=== PATIENT | female | born 1990 | race Two or more races ===

== ENCOUNTER 2020-07-03 17:29 | Outpatient (CLI) | payer BC ==
[~2020-07-03] VITALS: Ht 165.1 cm; Wt 120.0 kg
[2020-07-03 17:55] VITALS: BP 134/69
[2020-07-03] MEDS ORDERED: INSULIN NPH HUMAN 100 UNIT/ML, 3ML VIAL SQ-INSULIN SCH (20:30)
== END 2020-07-03 20:39 | disposition home or self-care (01) ==
LOC: LDOP 17:29
PROVIDERS: ATTEND Obstetrics & Gynecology
DX: O24.414 Gestational diabetes mellitus in pregnancy, insulin controlled (principal); O13.4 Gestational [pregnancy-induced] hypertension without significant proteinuria, complicating childbirth; Z3A.35 35 weeks gestation of pregnancy
CPT/HCPCS: 59025; 84112; 96372; J1815

== ENCOUNTER 2020-07-18 14:28 | Inpatient (IN) | payer BC ==
[~2020-07-18] VITALS: Ht 165.1 cm; Wt 120.0 kg
[2020-07-18 14:44] VITALS: BP 152/73
[2020-07-18] MEDS ORDERED: NEWBORN KIT ONE (14:45)
[2020-07-18] MEDS ORDERED: LIDOCAINE 1%, 20ML ONE (14:45)
[2020-07-18] MEDS ORDERED: OXYTOCIN 30U/ 0.9% NaCL 500ML 500 ML ONE ×2 (14:45→23:14)
[2020-07-18] MEDS ORDERED: MISOPROSTOL 200 MCG TABLET ONE (14:45)
[2020-07-18] MEDS ORDERED: NPH,100V5 SQ ×2 (14:58)
[2020-07-18] MEDS ORDERED: PREN1TAB60 PO (14:58)
[2020-07-18] MEDS ORDERED: CALCIUM CARBONATE 500 MG TAB.CHEW PO PRN (15:00)
[2020-07-18] MEDS ORDERED: ONDANSETRON 2MG/ML, 2ML IVPush PRN ×2 (15:00→21:30)
[2020-07-18] MEDS ORDERED: D5%-LACTATED RINGERS 1,000 ML IV SCH (15:00)
[2020-07-18] MEDS ORDERED: OXYTOCIN 30U/ 0.9% NaCL 500ML 500 ML IV ONE (15:00)
[2020-07-18] MEDS: LACTATED RINGERS 1,000 ML IV SCH ×2 (15:00→19:58)
[2020-07-18] MEDS ORDERED: TERBUTALINE 1 MG/ML, 1ML SQ PRN (15:00)
[2020-07-18] MEDS ORDERED: FENTANYL PF 100 MCG/2ML IVPush PRN (15:00)
[2020-07-18] MEDS ORDERED: MISOPROSTOL 25 MCG TABLET VG PRN (15:00)
[2020-07-18] MEDS ORDERED: FENTANYL PF 100 MCG/2ML IV PRN (15:00)
[2020-07-18] MEDS ORDERED: TERBUTALINE 1 MG/ML, 1ML IVPush PRN (15:00)
[2020-07-18] MEDS ORDERED: OXYTOCIN 30U/ 0.9% NaCL 500ML 500 ML IV PRN (15:30)
[2020-07-18 15:35] LABS: BASOPHILS % (AUTO) 1 % (0-1); EOSINOPHILS % (AUTO) 1 % (1-7); LYMPHOCYTES % (AUTO) 27 % (22-44); MEAN CORPUSCULAR HEMOGLOBIN 27.8 pg (27.0-34.8); MEAN CORPUSCULAR HGB CONC 33.7 g/dL (32.4-35.8); MEAN PLATELET VOLUME 10.4 fL (7.4-10.4); MONOCYTES % (AUTO) 5 % (2-9); NEUTROPHILS % (AUTO) 66 % (42-75); PLATELET COUNT 254 x10^3/uL (130-400); RED BLOOD COUNT 4.79 x10^6/uL (3.82-5.3)
[2020-07-18 15:43] LABS: ALANINE AMINOTRANSFERASE 100 U/L (12-78); ALBUMIN 2.4 g/dL (3.4-5.0); ANION GAP 11 mmol/L (5-15); BILIRUBIN, DIRECT 0.1 mg/dL (0.1-0.2); CALCIUM 8.9 mg/dL (8.5-10.1); CHLORIDE 107 mmol/L (98-107); CREATININE 0.71 mg/dL (0.55-1.02)
[2020-07-18 15:45] LABS: MD NO
[2020-07-18 15:45] LABS: CREATININE,URINE RANDOM 60.6 mg/dL
[2020-07-18 15:46] LABS: ALKALINE PHOSPHATASE 250 U/L (45-117); BILIRUBIN,TOTAL 0.6 mg/dL (0.2-1.0); TOTAL PROTEIN 7.2 g/dL (6.4-8.2)
[2020-07-18] MEDS ORDERED: BUPIVACAINE 0.25% ONE (20:27)
[2020-07-18] MEDS ORDERED: FENTANYL PF 100 MCG/2ML ONE (20:27)
[2020-07-18] MEDS ORDERED: FENTANYL/BUPIV./NS/PF 250 ML EPIDCONT ONE (20:27)
[2020-07-18] MEDS ORDERED: LACTATED RINGERS 1,000 ML IV SCH (21:30)
[2020-07-18] MEDS ORDERED: EPHEDRINE 50 MG/ML, 1ML IVPush PRN (21:30)
[2020-07-18] MEDS ORDERED: LACTATED RINGERS 1,000 ML IVBOLUS PRN (21:30)
[2020-07-18] MEDS ORDERED: FENTANYL/BUPIV./NS/PF 250 ML EPIDCONT SCH (21:30)
[2020-07-18] MEDS ORDERED: IBUPROFEN 600 MG TABLET PO PRN (22:30)
[2020-07-18] MEDS ORDERED: ONDANSETRON 2MG/ML, 2ML IV PRN (22:30)
[2020-07-18] MEDS ORDERED: MISOPROSTOL 200 MCG TABLET PR PRN (22:30)
[2020-07-18] MEDS: OXYTOCIN 30U/ 0.9% NaCL 500ML 500 ML IV SCH (22:30)
[2020-07-18] MEDS ORDERED: DOCUSATE 100 MG CAPSULE PO PRN (22:30)
[2020-07-18] MEDS ORDERED: ACETAMINOPHEN 325 MG TABLET PO PRN (22:30)
[2020-07-18] MEDS ORDERED: OXYcodone/APAP 5/325MG TABLET PO PRN ×2 (22:30)
[2020-07-18] MEDS ORDERED: SIMETHICONE 80 MG CHEW TAB PO PRN (22:30)
[2020-07-19 01:00] VITALS: BP 132/84
[2020-07-19 04:00] VITALS: BP 128/84
[2020-07-19 06:37] LABS: BASOPHILS % (AUTO) 1 % (0-1); EOSINOPHILS % (AUTO) 0 % (1-7); LYMPHOCYTES % (AUTO) 22 % (22-44); MEAN CORPUSCULAR HEMOGLOBIN 27.7 pg (27.0-34.8); MEAN CORPUSCULAR HGB CONC 33.7 g/dL (32.4-35.8); MEAN PLATELET VOLUME 10.1 fL (7.4-10.4); MONOCYTES % (AUTO) 5 % (2-9); NEUTROPHILS % (AUTO) 72 % (42-75); PLATELET COUNT 242 x10^3/uL (130-400); RED BLOOD COUNT 4.63 x10^6/uL (3.82-5.3); RED CELL DISTRIBUTION WIDTH 14.1 % (9.6-15.2)
[2020-07-19 07:50] LABS: MD SCAN
[2020-07-19 08:00] VITALS: BP 120/82
[2020-07-19] MEDS: PRENATAL VIT/IRON/FA 1 EACH TABLET PO SCH (08:22)
[2020-07-19] MEDS: OXYTOCIN 30U/ 0.9% NaCL 500ML 500 ML IV SCH ×2 (08:30→18:30)
[2020-07-19 12:15] VITALS: BP 135/90
[2020-07-19 17:00] VITALS: BP 130/86
[2020-07-19 19:49] VITALS: BP 126/83
[2020-07-20 02:00] VITALS: BP 126/79
[2020-07-20] MEDS: OXYTOCIN 30U/ 0.9% NaCL 500ML 500 ML IV SCH (04:30)
[2020-07-20 07:45] VITALS: BP 132/87
[2020-07-20] MEDS: PRENATAL VIT/IRON/FA 1 EACH TABLET PO SCH (07:53)
[2020-07-20] MEDS ORDERED: IBUP-1222 PO (08:44)
== END 2020-07-20 12:20 | disposition home or self-care (01) | DRG 807 ==
LOC: LDIP 14:28 → 2NW 07-19 00:40
PROVIDERS: ADMIT Obstetrics & Gynecology; ATTEND Obstetrics & Gynecology
PROC: 10E0XZZ Delivery of Products of Conception, External Approach (ICD-10-PCS; principal; 2020-07-18)
PROC: 0HQ9XZZ Repair Perineum Skin, External Approach (ICD-10-PCS; 2020-07-18)
PROC: 3E0R3BZ Introduction of Anesthetic Agent into Spinal Canal, Percutaneous Approach (ICD-10-PCS; 2020-07-18)
PROC: 00HU33Z Insertion of Infusion Device into Spinal Canal, Percutaneous Approach (ICD-10-PCS; 2020-07-18)
DX: O69.81X0 Labor and delivery complicated by cord around neck, without compression, not applicable or unspecified (principal); Z37.0 Single live birth; Z20.822 Contact with and (suspected) exposure to COVID-19; Z3A.36 36 weeks gestation of pregnancy; O13.4 Gestational [pregnancy-induced] hypertension without significant proteinuria, complicating childbirth; O24.424 Gestational diabetes mellitus in childbirth, insulin controlled; O70.0 First degree perineal laceration during delivery; Z88.5 Allergy status to narcotic agent
CPT/HCPCS: 36415; 80053; 82248; 82570; 82962; 84156; 84550; 85025; 86592; 86850; 86900; 87635; G0378; J2590; J7120